=== PATIENT | male | born 1985 | race Caucasian/White ===

== ENCOUNTER 2024-04-28 22:29 | Observation (INO) ==
[2024-04-28 23:00] LABS: ABS Lymphocytes 0.6 10^3/uL (1.0-4.8); ABS Monocytes 0.5 10^3/uL (0.0-1.1); ABS Neutrophils 13.4 10^3/uL (1.5-7.6); Eosinophil % 0.1 %; Hematocrit 43.3 % (38-53); Hemoglobin 14.9 g/dL (13.2-16.3); Lymphocyte % 4.1 %; Mean Corpuscular Hgb Conc 34.4 g/dL (31-36); Mean Platelet Volume 8.6 fL (7.5-11.2); Platelet Count 227 10^3/uL (150-450); Red Blood Count 4.65 10^6/uL (4.06-5.63); Red Cell Distribution Width 12.2 % (12-17); White Blood Count 14.5 10^3/uL (3.6-10.2)
[2024-04-28 23:07] LABS: INR 1.13 (0.85-1.14)
[2024-04-28 23:41] LABS: Albumin 4.7 g/dL (3.5-5.7); Albumin/Globulin Ratio 2.2 (1-3); CRP High Sensitivity 2.07 mg/L (<2.00); Calcium 9.2 mg/dL (8.6-10.3); Creatinine, Serum 0.99 mg/dL (0.67-1.17); Globulin 2.1 g/dL (2-4); Potassium 4.3 mmol/L (3.5-5.0); Total Bilirubin 0.7 mg/dL (0.2-1.0); Total Protein 6.8 g/dL (6.4-8.9)
[2024-04-29 00:53] LABS: High Sensitivity Troponin 1 Hr < 3 pg/mL (<20)
[2024-04-29] MEDS: Ondansetron 4 mg VIAL 2 MG/ML 2 ml VIAL IV ONE (01:24)
[2024-04-29] MEDS: Lactated Ringers 1000 ml BAG 1,000 ML IV ONE ×3 (01:24→13:34)
[2024-04-29 02:28] LABS: Body Fluid Source Cerebral Spinal
[2024-04-29 02:43] LABS: Body Fluid Appearance Cloudy
[2024-04-29 02:44] LABS: Body Fluid Color Colorless; CSF Tube # 4
[2024-04-29] MEDS: Dexamethasone IV 4 MG/ML VIAL 1 ml VIAL IV SLOW PU ONE (02:46)
[2024-04-29] MEDS: cefTRIAXone 2 gm/50 mL D5W 2 GM/50 ML BAG IV ONE (02:46)
[2024-04-29 03:05] LABS: CSF Glucose < 30 mg/dL (40-70)
[2024-04-29] MEDS: Metoclopramide 5 MG/ML VIAL (10 mg) IV SLOW PU ONE (03:36)
[2024-04-29] MEDS: Vancomycin 1,250 MG in NS 0.9% 250 ml 250 ML IVPB ONE (03:46)
[2024-04-29 04:12] LABS: Body Fluid Mono 7 %; Body Fluid Total Cells Counted 200
[2024-04-29 04:14] LABS: CSF Body Fluid WBC 17286 /mcL (0-5)
[2024-04-29] MEDS ORDERED: Vancomycin per Pharmacy 1 EA NOTE FOLLOW UP SCH (06:00)
[2024-04-29] MEDS: Acetaminophen IV 1 GM/100ML 1,000 MG/100 ML BAG IV SCH (06:02)
[2024-04-29] MEDS: Ondansetron 4 mg VIAL 2 MG/ML 2 ml VIAL IV PRN (06:09)
[2024-04-29] MEDS ORDERED: Dexamethasone IV 4 MG/ML VIAL 1 ml VIAL IV SLOW PU SCH (08:00)
[2024-04-29] MEDS: Dexamethasone IV 4 MG/ML VIAL 1 ml VIAL IV SLOW PU SCH (09:15)
[2024-04-29] MEDS: Vancomycin 1000 MG in NS 0.9% 250 ML IVPB SCH (13:32)
[2024-04-29] MEDS: cefTRIAXone 2 gm/50 mL D5W 2 GM/50 ML BAG IV SCH (16:34)
[2024-04-29 17:53] LABS: HIV 4th Generation Nonreactive (Nonreactive)
[2024-04-30] MEDS: Sodium Chloride 3% HYPERTONIC 180 ML IV ONE (02:58)
[2024-04-30] MEDS ORDERED: Atropine 0.1 MG/ML 10 ml SYR (1 mg) IV PUSH PRN (03:09)
[2024-04-30] MEDS: metroNIDAZOLE IV 500 MG/100ML 500 MG/100 ML BAG IVPB SCH (03:18)
[2024-04-30 04:16] LABS: ABS Lymphocytes 0.4 10^3/uL (1.0-4.8); ABS Monocytes 0.7 10^3/uL (0.0-1.1); ABS Neutrophils 17.2 10^3/uL (1.5-7.6); ABS Nucleated RBC 0.01 10^3/ul; Hematocrit 38.7 % (38-53); Hemoglobin 13.2 g/dL (13.2-16.3); Lymphocyte % 2.1 %; Mean Corpuscular Hemoglobin 31.8 pg (27-33); Mean Corpuscular Hgb Conc 34.2 g/dL (31-36); Mean Corpuscular Volume 93.2 fL (80-97); Mean Platelet Volume 8.9 fL (7.5-11.2); Platelet Count 189 10^3/uL (150-450); Red Blood Count 4.16 10^6/uL (4.06-5.63); Red Cell Distribution Width 12.4 % (12-17); White Blood Count 18.3 10^3/uL (3.6-10.2)
[2024-04-30] MEDS: levETIRAcetam 1000MG IVPREMIX 1,000 MG/100 ML BAG IVPB SCH (04:31)
[2024-04-30] MEDS: cefTRIAXone 2 gm/50 mL D5W 2 GM/50 ML BAG IV SCH (04:55)
[2024-04-30 05:06] LABS: Calcium 9.2 mg/dL (8.6-10.3); Potassium 4.2 mmol/L (3.5-5.0)
[2024-04-30 05:07] LABS: Creatinine, Serum 0.76 mg/dL (0.67-1.17); Magnesium 1.9 mg/dL (1.9-2.7)
[2024-04-30] MEDS: Atropine 0.1 MG/ML 10 ml SYR (1 mg) ONE (05:23)
[2024-04-30] MEDS: Gadoteridol (CONTRAST) 279.3 MG/ML 10 ML IV ONE (07:36)
[2024-04-30 08:51] VITALS: BP 121/69
[2024-04-30] MEDS ORDERED: Vancomycin Trough Check NOTE FOLLOW UP ONE (11:30)
== END 2024-04-30 08:40 | disposition short-term general hospital (02) ==
LOC: EDHOLD 22:29 → ED 22:29 → MED 04-29 13:10 → ICU 04-30 03:15
PROVIDERS: ADMIT Internal Medicine; ATTEND Internal Medicine